=== PATIENT | male | born 1985 | race Caucasian/White ===

== ENCOUNTER 2021-12-30 10:14 | Day surgery (SDC) | payer MEDICAID ==
[~2021-12-30] VITALS: Ht 188 cm; Wt 124.7 kg
[2021-12-30] VITALS (18 sets, daily range): BP systolic 140–189; BP diastolic 82–115
[~2021-12-30 10:14] MED LIST: BUPR-94 PO; BUSP10TA3 PO; OMEP20CA16 PO; cefazolin/dext.iso 2gm/50ml IV ONE; famotidine 20mg tablet PO ONE; ringers solution, lacted 1,000 ML IV SCH
[2021-12-30] MEDS ORDERED: ceFAZolin inj. 3,000 MG in normal saline 100ml IV soln 100 ML IV ONE (11:16)
[2021-12-30] MEDS ORDERED: ceFAZolin 1,000 MG in NS 50ML IVPB IV ONE (11:20)
[2021-12-30] MEDS ORDERED: ringers solution, lacted 1,000 ML IV SCH (11:45)
[2021-12-30] MEDS ORDERED: ondansetron/PF 4mg/2ml inj IV PRN (11:45)
[2021-12-30] MEDS ORDERED: meperidine/PF 25mg/ml syringe IV PRN ×2 (11:45)
[2021-12-30] MEDS ORDERED: morphine 4 MG/ML inj SYRINge IV PRN (11:45)
[2021-12-30] MEDS ORDERED: morphine 2 MG/ML inj. syringe IV PRN (11:45)
[2021-12-30] MEDS ORDERED: proCHLORperazine 10 MG/2 ml inj IV PRN (11:45)
[2021-12-30] MEDS ORDERED: BUPIVACAINE liposomal/PF 13.3 MG/ML vial IM ONE (11:49)
[2021-12-30] MEDS ORDERED: midazolam 1 mg/ML 2ml injection ONE (11:51)
[2021-12-30] MEDS ORDERED: BUPIVAcaine 0.5% inj/PF 0 ML ONE (11:52)
[2021-12-30] MEDS ORDERED: fentaNYL /PF 50mcg/ml 5ml ampule ONE (11:52)
[2021-12-30] MEDS ORDERED: acetaminophen 1000 MG/100ml vial IV ONE (12:01)
[2021-12-30] MEDS ORDERED: labetalol 20mg/4ml (5mg/ml) syringe IV ONE (12:01)
[2021-12-30] MEDS ORDERED: sevoflurane 250ml liquid IH ONE (12:01)
[2021-12-30] MEDS ORDERED: dexamethasone sod phosphate 10mg/ml inj ONE (12:01)
[2021-12-30] MEDS ORDERED: LIDOcaine 2% (20mg/ml) 5ml vial ONE (12:29)
[2021-12-30] MEDS ORDERED: rocuronium 10mg/ml inj IV ONE (12:29)
[2021-12-30] MEDS ORDERED: propofol inj 20 ML IV ONE (12:29)
[2021-12-30] MEDS ORDERED: ondansetron/PF 4mg/2ml inj ONE (13:14)
[2021-12-30] MEDS ORDERED: glycopyrrolate 0.2mg/ml inj ONE (13:14)
[2021-12-30] MEDS ORDERED: meperidine/PF 25mg/ml syringe ONE (13:14)
[2021-12-30] MEDS ORDERED: neostigmine methylsulfate 1 MG/ML 10ml vial ONE (13:14)
--- NOTE | 2021-12-30 13:28 | NUR ---
Received from OR via STRETCHER , accompanied by Anesthesiologist DR RUASCH and report given by Anesthesiolgist. PT WITH SNORING RESPIRATION, HEAD TILTED BACK WITH GOOD RESULTS, SMALL AMOUNT OF DRAINAGE ON LEFT INCISION, SMALL [address] FOR BLE[address]ING, Addendum: 12/30/21 at 1436 by Hilary Frazier RN Amended: Links added.
[2021-12-30] MEDS: meperidine/PF 25mg/ml syringe IV PRN ×2 (13:58→14:16)
--- NOTE | 2021-12-30 15:30 | NUR ---
pt up out of bed, ambulated to the bathroom without results, pt c/o abdominal cramping, placed in wheelchair and rolled back to the recovery room in stable condition, reattached to the monitor, vital signs are stable.
[2021-12-30] MEDS ORDERED: HYDROcodone/acetaminophen 10/325mg tab PO ONE (16:30)
--- NOTE | 2021-12-30 16:42 | NUR ---
pt was able to urinate 300, bladder scan was done prior to urination showing 240cc in bladder. discharge instructions reiterated to patient prior to discharge. pt verbalized understanding of all instructions including the no lifting restriction.
== END 2021-12-30 16:58 | disposition home or self-care (01) ==
LOC: PAS 10:14
PROVIDERS: ATTEND Surgery
DX: K43.2 Incisional hernia without obstruction or gangrene (principal); K66.0 Peritoneal adhesions (postprocedural) (postinfection); K21.9 Gastro-esophageal reflux disease without esophagitis; M19.071 Primary osteoarthritis, right ankle and foot; F41.9 Anxiety disorder, unspecified; F32.A Depression, unspecified; E66.9 Obesity, unspecified; Z68.35 Body mass index [BMI] 35.0-35.9, adult; F12.90 Cannabis use, unspecified, uncomplicated; F17.210 Nicotine dependence, cigarettes, uncomplicated; Z72.89 Other problems related to lifestyle; Z85.818 Personal history of malignant neoplasm of other sites of lip, oral cavity, and pharynx; Z98.890 Other specified postprocedural states; Z79.899 Other long term (current) drug therapy
CPT/HCPCS: 49656; 64488; 82948; C1781; C9290; J0131; J0690; J1100; J2175; J2250; J2405; J2704; J2710; J3010; J3490; J7030; J7120; Z7506; Z7508; Z7512; A4215; A4618; A7000; S0020